=== PATIENT | male | born 1965 | race Caucasian/White ===

== ENCOUNTER 2025-06-06 19:36 | Emergency (ER) | payer BC, SELFPAY ==
[2025-06-06 19:39] VITALS: BP 149/87
[2025-06-06 20:19] VITALS: BMI 28.9
[2025-06-06 20:22] VITALS: BP 160/93
--- NOTE | 2025-06-06 20:22 | EDRN ---
Pt was lifting weights, doing a bench press and bar slipped from his fingers and landed on his chest. Weight was 185 lbs. Pt went to urgent care, had an ekg, xray and blood work done. Pt was told EKG normal and he has a sternal fx so pt sent to
ED. No sob, hurts with deep inspiration. No fever/cough. No other pain besides chest. No neck/back pain. No pain medication taken.
[2025-06-06 20:55] LABS: Hematocrit 44.5 % (39.0-52.0); Hemoglobin 15.5 g/dL (13.0-18.0); Mean Corp Hgb Conc. 34.8 g/dL (33.0-37.0); Mean Corpuscular Volume 86.2 fL (80.0-94.0); Nucleated Red Blood Cells % 0 % (-); Platelet Count 305 10^3/uL (130-400); Red Cell Dist. Width 12.4 % (11.5-14.5)
[2025-06-06 21:00] VITALS: BP 154/87
[2025-06-06 21:17] LABS: ALT (SGPT) 52 U/L (0-50); AST (SGOT) 49 U/L (17-59); Albumin 4.6 g/dl (3.5-5.0); Alkaline Phosphatase 59 U/L (38-126); Blood Urea Nitrogen 20 mg/dl (9-20); Calcium 9.7 mg/dl (8.4-10.2); Carbon Dioxide 26 mmol/L (22-30); Chloride 104 mmol/L (98-107); Estimated Creatinine Clearance 77 ml/min; Glucose 122 mg/dl (70-99); Potassium 4.9 mmol/L (3.5-5.1); Sodium 137 mmol/L (135-145); Total Protein 7.4 g/dl (6.3-8.2); eGFR > 60.00
[2025-06-06 21:18] LABS: Troponin I < 0.012 ng/ml
[2025-06-06 22:00] VITALS: BP 148/88
[2025-06-06 23:00] VITALS: BP 136/91
--- NOTE | 2025-06-06 23:18 | ED.GENMED ---
History of Present Illness
General
Chief Complaint: Musculo-Skeletal Complaint
Source: patient
Exam Limitations: none
Time Seen by Provider: 06/06/25 20:40
Nursing documentation reviewed up to this point in time: agreed with
History of Present Illness
History of Present Illness:
Note:
CHIEF COMPLAINT(S)
Chest pain
HISTORY OF PRESENT ILLNESS
The patient is a 59-year-old male who presents with chest pain. The pain varies with movement and is not constant when sitting still. There is no associated difficulty with breathing. The patient was initially seen at an urgent care facility where
he was subsequently referred to our care for further evaluation. The patient indicates that the pain occurs on movement and can localize the discomfort with one finger to a specific area on the chest, suggestive of a localized musculoskeletal
origin. We discussed obtaining a chest scan and conducting blood tests to evaluate the cause of the pain further.
PHYSICAL EXAM
General: Alert, no acute distress.
Skin: Warm, dry.
Head: Normocephalic, atraumatic.
Neck: Supple, trachea midline.
Eye Ears, nose, mouth and throat: Oral mucosa moist.
Cardiovascular: Normal peripheral perfusion, No edema.
Respiratory: Respirations are non-labored.
Gastrointestinal: Abdomen nondistended.
Back: Normal range of motion, Normal alignment.
Musculoskeletal: Normal ROM, normal strength.
Neurological: Alert and oriented to person, place, time, and situation, No focal neurological deficit observed.
Psychiatric: Cooperative, appropriate mood & affect.
PLAN
Proceed with a chest scan and blood work to assess the etiology of the chest pain further.
DIFFERENTIAL DIAGNOSIS
The Differential Diagnosis includes, in no particular order and is not limited to:
1. Musculoskeletal pain
2. Costochondritis
3. Rib fracture
4. Myocardial infarction
5. Pulmonary embolism
6. Pneumothorax
7. Gastroesophageal reflux disease
8. Pneumonia
9. Pleurisy
10. Angina pectoris
Disposition:
SUMMARY OF ENCOUNTER
The patient, a 59-year-old male, presented to the emergency department with chest pain after dropping a 185-pound barbell on his chest. A CT scan was conducted which revealed a mild non-displaced rib fracture. After discussion with the
cardiothoracic senior science consultant, it was agreed upon to discharge the patient with instructions to follow up as needed.
DISPOSITION
Discharge to home.
ASSESSMENT
Non-displaced rib fracture due to trauma from a dropped barbell.
MANAGEMENT OF THE PATIENTS CARE WAS DISCUSSED WITH
Dr Rosi Galvez, Cardiothoracic Surgery, regarding CT scan results and discharge plan.
PLAN
Discharge with follow-up instructions as needed. Monitor pain and breathing. Take [id number] pain relief as needed, and avoid strenuous activities that could aggravate the injury.
INDEPENDENT REVIEW OF LABS AND INTERPRETATION OF TESTS
My independent interpretation of the CT scan is a mild non-displaced rib fracture.
PATIENT EDUCATION AND COUNSELING
The patient was educated on the nature of a rib fracture and advised about pain management, activity modification, and signs to watch for that would require immediate medical attention.
FOLLOW-UP INSTRUCTIONS
Follow-up with primary care or return to the emergency department if pain worsens, difficulty breathing develops, or any other concerning symptoms arise.
MEDICAL DECISION MAKING
-Complexity of Data Reviewed: Rib fracture affecting care. Potential differential diagnoses such as musculoskeletal pain, costochondritis, rib fracture, myocardial infarction, pulmonary embolism, and others were considered.
-Data:
Category 1
My independent interpretation of the CT scan indicates a mild non-displaced rib fracture.
Category 3
Discussion of management with Rosi Galvez, Cardiothoracic Surgery, to finalize the discharge plan.
DIAGNOSIS
Rib fracture, non-displaced (ICD-10: S22.43X)
Phy Exam
Physical Exam
Physical Exam:
.
Pulmonary Exam
Pulmonary Exam: lungs clear, no respiratory distress, no rhonchi, no stridor, no wheezing and no cough
Course
Orders/Labs/Results
Orders:
Orders
06/06/25 20:39
CT Chest With Iv Contrast Urgent
Comment:
Reason For Exam: chest trauma
06/06/25 20:43
Complete Blood Count/With Diff Urgent
Comprehensive Metabolic Panel Urgent
06/06/25 20:49
Troponin I Urgent
06/06/25 23:12
Electrocardiogram (*1) Urgent
Reason for Study: Chest Pain
EKG- Treatment ONCE
06/06/25 23:13
Incentive Spirometry [Rx Incentive Spirometry] [RESP] Urgent
Frequency: q1h while awake
Abnormal Lab Results
06/06/25
20:43
WBC 15.4 H 10^3/uL
(4.8-10.8)
Abs Immat Gran (auto) 0.1 H 10^3/uL
(0-0.05)
Absolute Neuts (auto) 13.6 H 10^3/uL
(1.4-6.5)
Absolute Lymphs (auto) 0.9 L 10^3/uL
(1.2-3.4)
Absolute Monos (auto) 0.7 H 10^3/uL
(0.1-0.6)
Immature Gran % 0.6 H %
(0-0.5)
Neutrophils % 88.4 H %
(42.2-75.2)
Lymphocytes % 5.6 L %
(20.5-51.1)
Glucose 122 H mg/dl
(70-99)
ALT 52 H U/L
(0-50)
06/06/25 20:43
06/06/25 20:43
Vital Signs
Initial and Last Documented VS:
Initial Vital Signs
Temp Pulse Resp BP Pulse Ox
98.3 F 85 20 149/87 98
06/06/25 19:39 06/06/25 19:39 06/06/25 19:39 06/06/25 19:39 06/06/25 19:39
Last Documented Vital Signs
Temp Pulse Resp BP Pulse Ox
98.3 F 74 19 136/91 98
06/06/25 19:39 06/06/25 23:00 06/06/25 23:00 06/06/25 23:00 06/06/25 23:59
*Pulse Oximetry
SaO2: 97
Oxygen Mode of Delivery: Room air
Patient hypoxic: no
*Critical Care Note
Total Time (30-74mins, 75-104mins- exclusive of procedures): Not Applicable
Update Note
Update Note:
EKG shows normal sinus rhythm rate 84 with normal intervals, normal axis. No evidence of acute ischemia present. This is a normal EKG.
ED Attending Note
-
Portions of this chart may have been created with voice recognition software.� Occasional wrong word or��sound alike� substitutions may have occurred due to the inherent limitations of voice recognition software.
Discharge Plan
Departure
Patient Disposition: Home (Routine Discharge)
Date of Disposition: 06/06/25
Time of Disposition: 23:20
Patient with high blood pressure during this ER visit?: Yes
Condition: Good
Discharge Problem:
Sternal fracture, Multiple rib fractures
Instructions: Rib injury in adults, Sternal Fracture (DC), How to use an incentive spirometer, BLOOD PRESSURE
Prescriptions:
New
diclofenac sodium 75 mg tablet,delayed release (DR/EC)
75 mg PO BID Qty: 10 0RF
No Action
pravastatin 20 mg Tablet
20 mg PO DAILY
finasteride 5 mg Tablet
5 mg PO DAILY
Referrals:
Rosi Godoy MD [Active, Cardiac Surgery] - Call in 1-3 days for appt
Activity Restrictions/Additional Instructions:
Your prescriptions were sent electronically to the pharmacy that you specified.
Thank You for choosing [facility].
It was a pleasure meeting you and taking part in your care. We hope for your continued healing and wellness.
Please read discharge instructions in their entirety. However, they are for general education and may not describe your exact diagnosis at discharge. Information on your ER visit and medical conditions were discussed with you along with appropriate
follow up information...
If indicated, please take your medications as instructed and indicated on discharge paperwork.
Please schedule a follow up appointment as directed. Call to schedule an appointment
Please return to the emergency department with ANY change in, persisting, or worsening of symptoms. If any of your symptoms do not improve, or persist, or become more severe within 6-12 hours, please return to the emergency department for further
care.
Please return to the emergency department if you develop a headache, neck pain/stiffness, fever greater than 100.4F, chest pain, shortness of breath, persistent nausea, vomiting, slurred speech, difficulty walking, numbness/tingling, weakness, signs
of infection or any other symptoms that are worrisome to you.
If you have any questions or concerns please do not hesitate to call the Hospital at .
Interventions
Interventions:
*General Assessment Last Done: 06/06/25 19:39
*Neglect/Abuse Screening Last Done: 06/06/25 19:39
*ED COVID-19 Vaccine History Last Done: 06/06/25 20:19
*ED Influenza Vaccine History Last Done: 06/06/25 20:19
[facility] Risk Assessment Tool Last Done: 06/06/25 20:19
*Risk Screen - Suicide (C-SSRS) Last Done: 06/06/25 19:39
*Nursing Disposition Last Done: 06/07/25 00:10
ED-Musculoskeletal Assessment Last Done: 06/06/25 20:33
Discharge Date and Time
Discharge Date/Time: 06/07/25 00:10
Print Language: [place]
== END 2025-06-07 00:10 | disposition home or self-care (01) ==
LOC: EMR 19:36
PROVIDERS: EMERGENCY PHYSICIAN Student in an Organized Health Care Education/Training Program
DX: S22.20XA Unspecified fracture of sternum, initial encounter for closed fracture (principal); S22.42XA Multiple fractures of ribs, left side, initial encounter for closed fracture; W20.8XXA Other cause of strike by thrown, projected or falling object, initial encounter
CPT/HCPCS: 99284; 71260; 80053; 84484; 85025; 93005; Q9967